=== PATIENT | female | born 1995 | race Caucasian/White ===

== ENCOUNTER 2018-01-20 02:30 | Emergency (ER) | payer OTHER ==
[~2018-01-20] VITALS: Ht 162.6 cm; Wt 67.0 kg
[2018-01-20] MEDS ORDERED: FLUO40CA9 PO (02:46)
[2018-01-20 04:46] VITALS: BP 112/67
== END 2018-01-20 04:49 | disposition home or self-care (01) ==
LOC: ED 03:49
DX: S09.8XXA Other specified injuries of head, initial encounter (principal); R41.82 Altered mental status, unspecified; W18.39XA Other fall on same level, initial encounter; Y93.89 Activity, other specified; Y92.488 Other paved roadways as the place of occurrence of the external cause; Y99.8 Other external cause status
CPT/HCPCS: 70450; 72125; 99284